=== PATIENT | female | born 1955 | race African-American/Black ===

== ENCOUNTER 2020-11-08 08:43 | Inpatient (IN) ==
[2020-11-08] MEDS ORDERED: SODIUM CHLORIDE 0.9% 1,000 ML IV STA ×2 (09:44→09:45)
[2020-11-08] MEDS ORDERED: HYDROmorphone 2 MG/1 ML VIAL IV STA (09:45)
[2020-11-08] MEDS ORDERED: ONDANSETRON 4 MG/2 ML VIAL IV STA (09:45)
[2020-11-08 09:56] LABS: Basophils % 0.4 % (0.0-0.8); Eosinophils # 0.1 10*3/uL (0.0-0.87); Eosinophils % 0.5 % (0.00-10.9); Hematocrit 38.3 VOL% (35.7-47.0); Hemoglobin 12.2 GM/DL (12.0-16.0); Immature Granulocytes % 0.8 %; Immature Granulocytes Absolute 0.09 #; Lymphocytes # 1.3 10*3/uL (1.4-4.0); Lymphocytes % 12.2 % (21.3-54.2); Mean Corpuscular HGB Conc 31.9 GM/DL (32-36); Mean Corpuscular Volume 77.4 FL (87-102); Mean Platelet Volume 9.7 FL (9.6-12.0); Monocytes % 4.4 % (1.7-12.7); Neutrophils % 81.7 % (38.7-73.9); Platelet Count 311 T/CUMM (130-400); Red Blood Count 4.95 MC/CUMM (3.8-5.5); Red Cell Distribution Width 15.3 % (9.3-17.3); White Blood Count 10.8 T/CUMM (4-12)
[2020-11-08 10:17] LABS: Alanine Aminotransferase 16 U/L (13-56); Albumin 3.4 G/DL (3.4-5.0); Alkaline Phosphatase 97 U/L (45-117); Aspartate Amino Transferase 15 U/L (0-37); Blood Urea Nitrogen 14 MG/DL (7-18); Calcium 9.1 MG/DL (8.5-10.1); Estimated Glom Filtration Rate 114 ML/MIN; Glucose 144 MG/DL (74-106); Osmolality,Calculated 280.5 MOS/KG (273-304); Total Protein 8.3 G/DL (6.4-8.3)
[2020-11-08] MEDS ORDERED: metroNIDAZOLE INJ 500 MG in PREMIX 1 EACH IV STA (12:37)
[2020-11-08] MEDS ORDERED: LEVOFLOXACIN INJ 500 MG in PREMIX 1 EACH IV STA (12:37)
[2020-11-08] MEDS ORDERED: MAGNESIUM SULF RIDER 2 GM in PREMIX 1 EACH IV PRN (14:15)
[2020-11-08] MEDS ORDERED: MAGNESIUM SULF RIDER 4 GM in PREMIX 1 EACH IV PRN (14:15)
[2020-11-08] MEDS ORDERED: POTASSIUM CHLORIDE RIDER 10 MEQ in PREMIX 1 EACH IV PRN (14:15)
[2020-11-08] MEDS ORDERED: HYDROmorphone 2 MG/1 ML VIAL IV PRN (14:15)
[2020-11-08] MEDS ORDERED: ONDANSETRON 4 MG/2 ML VIAL IV PRN (14:15)
[2020-11-08] MEDS ORDERED: hydrALAZINE 20 MG/1 ML VIAL IV STA (14:17)
[2020-11-08] MEDS ORDERED: GLUCAGON 1 MG VIAL IM PRN ×2 (14:24→14:30)
[2020-11-08] MEDS ORDERED: DEXTROSE 50% 25 GM/50 ML VIAL IV PRN ×2 (14:24→14:30)
[2020-11-08] MEDS ORDERED: PROMETHAZINE 25 MG/1 ML VIAL IM PRN (14:24)
[2020-11-08] MEDS ORDERED: hydrALAZINE 20 MG/1 ML VIAL IV PRN (14:30)
[2020-11-08] MEDS ORDERED: LORazepam 1 MG TABLET ONE (14:37)
[2020-11-08] MEDS ORDERED: carvediloL 3.125 MG TABLET PO STA (15:09)
[2020-11-08 15:19] LABS: Folate 14.5 NG/ML (5.4-24.0)
[2020-11-08 15:21] LABS: % Iron Saturation 20.2 % (18-50); Ferritin 159.2 ng/ml (8-252); Risk Ratio 4.13; VLDL CHOLESTEROL 14.2 MG/DL
[2020-11-08 16:39] LABS: Bilirubin,Urine Negative (Negative); Blood, Urine Negative (Negative); Glucose,Urine (UA) 50 mg/dL (Negative); Ketones,Urine 20 mg/dL (Negative); Mucus,Urine Occasional /LPF (Occasional); Nitrite,Urine Negative (Negative); Protein,Urine Negative; RBC,Urine <1 /HPF (0-4); Squamous Epithelial Cell,Urine Occasional /HPF (0-10); Urine Appearance CLEAR (Clear); Urine Color Straw (Yellow); Urine Urobilinogen < 2.0 EU/DL (0.2-1.0); WBC,Urine <1 /HPF (0-6)
[2020-11-08] MEDS: DEXTROSE 5% NACL 0.9% 1,000 ML IV SCH (16:49)
[2020-11-08] MEDS ORDERED: hydrALAZINE 25 MG TABLET PO ONE (16:52)
[2020-11-08] MEDS: metroNIDAZOLE INJ 500 MG in PREMIX 1 EACH IV SCH ×2 (16:52→21:42)
[2020-11-08] MEDS: INSULIN REGULAR 100 UNIT/ML SUBCUT SCH (18:02)
[2020-11-08] MEDS: hydrALAZINE 25 MG TABLET PO SCH (20:40)
[2020-11-08] MEDS: carvediloL 3.125 MG TABLET PO SCH (20:40)
[2020-11-08] MEDS: CIPROFLOXACIN INJ 400 MG in PREMIX 1 EACH IV SCH (20:40)
[2020-11-08] MEDS ORDERED: ATORVASTATIN 20 MG TABLET PO SCH (21:00)
[2020-11-09] MEDS: INSULIN REGULAR 100 UNIT/ML SUBCUT SCH ×3 (00:15→11:50)
[2020-11-09] MEDS: metroNIDAZOLE INJ 500 MG in PREMIX 1 EACH IV SCH ×2 (03:33→12:15)
[2020-11-09 05:53] LABS: Basophils % 0.1 % (0.0-0.8); Eosinophils % 0.1 % (0.00-10.9); Hemoglobin 11.5 GM/DL (12.0-16.0); Immature Granulocytes % 0.3 %; Immature Granulocytes Absolute 0.03 #; Lymphocytes # 1.3 10*3/uL (1.4-4.0); Lymphocytes % 14.1 % (21.3-54.2); Mean Corpuscular HGB Conc 31.9 GM/DL (32-36); Mean Corpuscular Volume 77.8 FL (87-102); Mean Platelet Volume 10.1 FL (9.6-12.0); Monocytes % 8.4 % (1.7-12.7); Platelet Count 268 T/CUMM (130-400); Red Blood Count 4.63 MC/CUMM (3.8-5.5); Red Cell Distribution Width 15.2 % (9.3-17.3); White Blood Count 9.4 T/CUMM (4-12)
[2020-11-09 06:14] LABS: Albumin 2.9 G/DL (3.4-5.0); Bilirubin,Total 0.4 MG/DL (0.2-1.0); Osmolality,Calculated 282.1 MOS/KG (273-304); Total Protein 7.9 G/DL (6.4-8.3)
[2020-11-09] MEDS: CIPROFLOXACIN INJ 400 MG in PREMIX 1 EACH IV SCH (08:22)
[2020-11-09] MEDS: DEXTROSE 5% NACL 0.9% 1,000 ML IV SCH (08:22)
[2020-11-09] MEDS ORDERED: PANTOPRAZOLE 40 MG VIAL IV SCH (09:00)
[2020-11-09] MEDS: carvediloL 3.125 MG TABLET PO SCH (10:08)
[2020-11-09] MEDS: hydrALAZINE 25 MG TABLET PO SCH (10:08)
[2020-11-09] MEDS ORDERED: LIDOCAINE 2% 5 ML VIAL ONE (10:21)
[2020-11-09] MEDS ORDERED: propofoL 200 MG/20 ML VIAL IV ONE (10:21)
[2020-11-09] MEDS ORDERED: ONDANSETRON 4 MG/2 ML VIAL ONE (10:21)
[2020-11-09] MEDS ORDERED: LABETALOL 20 MG/4 ML SYRINGE IV ONE (10:43)
[2020-11-09] MEDS ORDERED: LORazepam 2 MG/1 ML VIAL IV ONE (13:41)
[2020-11-09 15:54] VITALS: BP 217/102
== END 2020-11-09 16:40 | disposition home or self-care (01) | DRG 392 ==
LOC: N.ED 08:43 → N.EDINP 14:27 → N.5E 16:16
PROVIDERS: ADMIT Internal Medicine; ATTEND Internal Medicine